=== PATIENT | male | born 1990 | race Caucasian/White ===

== ENCOUNTER 2019-07-27 19:26 | Emergency (ER) | payer OTHER ==
[~2019-07-27] VITALS: Ht 182.9 cm; Wt 161.0 kg
[~2019-07-27 19:26] MED LIST: KEFLEX500 MG PO; NAPROSYN500 MG PO; NOHOMEMEDICATIONS; PERCOCET 5-3251 EACH PO; TAMSULOSIN HCL0.4 MG PO
[2019-07-27 19:49] LABS: INFLUENZA A ANTIGEN Positive (Negative); INFLUENZA B ANTIGEN Negative (Negative)
[2019-07-27] MEDS ORDERED: TESSALON PERLE100 MG PO (20:15)
[2019-07-27] MEDS ORDERED: TYLENOL WITH CO1 TA1 PO (20:15)
[2019-07-27] MEDS ORDERED: PROMETHAZI6.25 MG/5 PO (20:15)
[2019-07-27] MEDS ORDERED: TAMIFLU75 MG PO (20:15)
[2019-07-27 20:35] VITALS: BP 162/90
== END 2019-07-27 20:35 | disposition home or self-care (01) ==
LOC: M.ERS 19:26
PROVIDERS: Physician Assistant
DX: J10.1 Influenza due to other identified influenza virus with other respiratory manifestations (principal); Z87.442 Personal history of urinary calculi